=== PATIENT | female | born 1945 | race Caucasian/White ===

== ENCOUNTER → 2021-07-12 | Outpatient (CLI) | payer MEDICARE ==
[~2021-07-12] MED LIST: ALBUTEROL2.5 MG/3 M INH; ALEVE220 MG PO; BENADRYL25 MG PO; CLARITIN10 MG PO; IRON325 M1 PO; ISOSORBIDE MONO60 MG PO; LASIX 40 MG TAB40 MG PO; LEVOTHYROXINE50 MC1 PO; LIPITOR40 MG PO; LISINOPRIL10 MG PO; LOPRESSOR100 MG PO; LOW DOSE ASPIRI81 MG PO; METFORMIN HCL1000 MG PO; NITROSTAT0.4 MG SL; NORVASC10 MG PO; NOVOLIN 70100 UNIT/1 SQ; OMEPRAZOLE40 MG PO; PLAQUENIL200 MG PO; SINGULAIR10 MG PO; TYLENOL EXTRA500 MG PO; ULTRAM50 MG PO; VENLAFAXINE H37.5 M1 PO; XARELTO20 MG PO
[2021-07-12 11:38] LABS: HEMOGLOBIN 10.2 gm/dl (12.3-15.3); RED BLOOD COUNT 4.83 M/UL (4.00-5.10); WHITE BLOOD COUNT 8.2 K/UL (4.5-11.0)
[2021-07-12 12:18] LABS: BUN/CREATININE RATIO 26 (0-10)
== END ==
LOC: OPSV2 10:00 → EDSTATUS 10:00 → OPSV2 10:13
PROVIDERS: Orthopaedic Surgery
DX: Z01.818 Encounter for other preprocedural examination (principal); M16.11 Unilateral primary osteoarthritis, right hip; I99.8 Other disorder of circulatory system; I45.10 Unspecified right bundle-branch block; R94.31 Abnormal electrocardiogram [ECG] [EKG]
CPT/HCPCS: 36415; 71046; 80048; 83036; 85025; 93005

== ENCOUNTER → 2021-07-25 | Outpatient (CLI) | payer MEDICARE ==
[~2021-07-25] MED LIST changes: +DOCUSATE SODIU100 MG PO; +HYDROCODON-ACE1 EAC6 PO; +LOPRESSOR 50 MG50 MG PO
[2021-07-25 13:28] LABS: BUN/CREATININE RATIO 26 (0-10)
== END ==
LOC: LAB 12:18
PROVIDERS: Orthopaedic Surgery
DX: Z01.812 Encounter for preprocedural laboratory examination (principal); M16.11 Unilateral primary osteoarthritis, right hip
CPT/HCPCS: 36415; 80048; 82962; 86850; 86900; 86901

== ENCOUNTER 2021-07-26 05:15 | Day surgery (SDC) | payer MEDICARE ==
[~2021-07-26] VITALS: Ht 167.6 cm; Wt 102.1 kg
[~2021-07-26 05:15] MED LIST changes: -DOCUSATE SODIU100 MG PO; -HYDROCODON-ACE1 EAC6 PO; -LOPRESSOR 50 MG50 MG PO
[2021-07-27 04:16] LABS: HEMOGLOBIN 8.6 gm/dl (12.3-15.3); RED BLOOD COUNT 4.04 M/UL (4.00-5.10); WHITE BLOOD COUNT 13.6 K/UL (4.5-11.0)
[2021-07-27 04:28] LABS: BUN/CREATININE RATIO 23 (0-10)
[2021-07-27] MEDS ORDERED: HYDROCODON-ACE1 EAC6 PO (11:59)
[2021-07-28 02:57] LABS: HEMOGLOBIN 8.3 gm/dl (12.3-15.3); RED BLOOD COUNT 3.98 M/UL (4.00-5.10); WHITE BLOOD COUNT 12.3 K/UL (4.5-11.0)
[2021-07-28 03:25] LABS: BUN/CREATININE RATIO 21 (0-10)
[2021-07-28] MEDS ORDERED: DOCUSATE SODIU100 MG PO (11:14)
[2021-07-28] MEDS ORDERED: LOPRESSOR 50 MG50 MG PO (11:14)
== END 2021-07-28 15:07 | disposition home or self-care (01) ==
LOC: OR 05:15 → EDSTATUS 09:15 → M/S 12:44 → OR 07-28 15:07
PROVIDERS: Orthopaedic Surgery
DX: M16.11 Unilateral primary osteoarthritis, right hip (principal); I48.91 Unspecified atrial fibrillation; D62 Acute posthemorrhagic anemia; E11.40 Type 2 diabetes mellitus with diabetic neuropathy, unspecified; E78.5 Hyperlipidemia, unspecified; J45.909 Unspecified asthma, uncomplicated; I11.0 Hypertensive heart disease with heart failure; I50.9 Heart failure, unspecified; E66.01 Morbid (severe) obesity due to excess calories; Z99.81 Dependence on supplemental oxygen; Z79.01 Long term (current) use of anticoagulants; Z79.82 Long term (current) use of aspirin; Z91.048 Other nonmedicinal substance allergy status; Z85.3 Personal history of malignant neoplasm of breast
CPT/HCPCS: 36415; 73502; 76000; 80048; 82962; 85025; 94640; 94664; 94760; 97110; 97116; 97116-GP-CQ; 97162; 97166; 97530; 97535; C1713; C1776; J0690; J1100; J1170; J1200; J1644; J1885; J2405; J2704; J2710; J2795; J3010; J3475; J7050; P9045